=== PATIENT | male | born 1970 | race African-American/Black ===

== ENCOUNTER 2021-01-24 08:52 | Emergency (ER) | payer SELFPAY ==
[~2021-01-24] VITALS: Ht 182.9 cm; Wt 93.0 kg
[2021-01-24] MEDS ORDERED: IBUP-2029 MT (11:56)
[2021-01-24] MEDS ORDERED: AMOX-424 MT (11:56)
[2021-01-24 12:58] VITALS: BP 150/90
== END 2021-01-24 13:22 | disposition home or self-care (01) ==
LOC: ER 09:00
DX: S02.2XXA Fracture of nasal bones, initial encounter for closed fracture (principal); S02.85XA Fracture of orbit, unspecified, initial encounter for closed fracture; X58.XXXA Exposure to other specified factors, initial encounter; Y93.89 Activity, other specified; Y92.89 Other specified places as the place of occurrence of the external cause; Y99.8 Other external cause status
CPT/HCPCS: 70486; 99284